=== PATIENT | female | born 1955 | race Caucasian/White ===

== ENCOUNTER → 2017-11-13 16:45 | Outpatient (CLI) | payer OTHER, SELFPAY ==
--- NOTE | 2017-11-13 16:48 | DI.MRI.S_ITS ---
PROCEDURE: MR ANGIO HEAD WO CON INDICATIONS: TINNITUS,BILATERAL TECHNIQUE: Noncontrast axial 3-D [id number] MR angiogram, with 3-dimensional maximum intensity projection (MIP) reformats of the internal carotid arteries and posterior circulation then performed. COMPARISON: None. FINDINGS: Image quality: Excellent. Anterior circulation: Intracranial internal carotid arteries demonstrate normal size and intraluminal flow signal. The flow within the paired anterior cerebral arteries is normal and symmetric. The flow within the middle cerebral arteries is normal and symmetric. The anterior communicating artery is seen. No stenoses, occlusions, or aneurysms. Posterior circulation: Visualized portions of the vertebral arteries demonstrate normal caliber, and join to form a normal appearing basilar artery. There is a prominent right posterior communicating artery seen, with an accompanying diminutive right P1 segment. This is attributed to a type origin of the right posterior cerebral artery, which is considered to be a normal developmental variant of typically no clinical consequence. The flow within the posterior cerebral arteries is normal and symmetric. No stenoses, occlusions, or aneurysms. There is a vascular loop seen curving into the right internal auditory canal, as on series 2 image 32. IMPRESSION: There is a vascular loop seen that courses into the right internal auditory canal. Please correlate with potential right sided pulsatile tinnitus. No aneurysms are seen. Dictated by: Luan Izaguirre M.D. on 11/14/2017 at 7:54 Approved by: Luan Izaguirre M.D. on 11/14/2017 at 7:57
== END ==
PROVIDERS: Visit Provider Otolaryngology
DX: H93.13 Tinnitus, bilateral (principal)
CPT/HCPCS: 70544